=== PATIENT | female | born 2000 | race Caucasian/White ===

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

== ENCOUNTER → 2019-03-04 | Outpatient (CLI) | payer OTHER ==
[~2019-03-04] MED LIST changes: +MACR100C43 PO; +NAPR-837 PO; +REGL10TA6 PO
[2019-03-04 19:04] LABS: MONO SCRN NEGATIVE (NEGATIVE)
== END ==
LOC: M LAB 17:43
PROVIDERS: ATTEND Physician Assistant Medical
DX: R53.83 Other fatigue (principal)

== ENCOUNTER 2019-04-18 13:30 | Emergency (ER) | payer OTHER ==
[~2019-04-18] VITALS: Ht 154.9 cm; Wt 72.7 kg
[2019-04-18] MEDS ORDERED: MIRE1IUD IU (13:35)
[2019-04-18 14:38] LABS: BASO # 0.1 10^3/uL (0.0-0.2); BASO % 0.6 % (0.0-1.0); EOS # 0.1 10^3/uL (0.0-0.50); EOS % 1.3 % (0.0-3.0); HEMATOCRIT 44.2 % (36.0-47.0); HEMOGLOBIN 15.4 g/dl (12.0-15.5); LYMPH # 2.7 10^3/uL (1.5-6.5); LYMPH % 30.5 % (24.0-44.0); MEAN CORPUSCULAR HEMOGLOBIN 30.9 pg (27.0-33.0); MEAN CORPUSCULAR HGB CONC 34.8 g/dl (32.0-36.5); MEAN CORPUSCULAR VOLUME 88.6 fl (80.0-96.0); MONO # 0.9 10^3/uL (0.0-0.8); MONO % 9.9 % (0.0-5.0); NEUTROPHILS % 57.4 % (36.0-66.0); PLATELET COUNT, AUTOMATED 309 10^3/uL (150-450); RED BLOOD COUNT 4.99 10^6/uL (4.00-5.40); WHITE BLOOD COUNT 8.7 10^3/uL (4.0-10.0)
[2019-04-18 15:07] LABS: ALT/SGPT 22 U/L (12-78); BILIRUBIN,DIRECT 0.1 MG/DL (0.0-0.2); BILIRUBIN,TOTAL 0.6 MG/DL (0.2-1.0); BLOOD UREA NITROGEN 10 MG/DL (7-18); CALCIUM LEVEL 9.3 MG/DL (8.5-10.1); CARBON DIOXIDE LEVEL 29 MEQ/L (21-32); CHLORIDE LEVEL 107 MEQ/L (98-107); CREATININE FOR GFR 0.78 MG/DL (0.55-1.30); GLUCOSE, FASTING 84 MG/DL (70-100); LIPASE 111 U/L (73-393); SODIUM LEVEL 141 MEQ/L (136-145); TOTAL PROTEIN 7.4 GM/DL (6.4-8.2)
[2019-04-18] MEDS ORDERED: KEFL500C17 PO (16:41)
[2019-04-18 16:48] VITALS: BP 131/83
== END 2019-04-18 16:51 | disposition home or self-care (01) ==
LOC: M ED 13:30
DX: N39.0 Urinary tract infection, site not specified (principal); Z97.5 Presence of (intrauterine) contraceptive device

== ENCOUNTER 2019-05-25 22:52 | Emergency (ER) | payer OTHER ==
[~2019-05-25] VITALS: Ht 154.9 cm; Wt 70.9 kg
[~2019-05-25 22:52] MED LIST changes: +KEFL500C17 PO; +MIRE1IUD IU
[2019-05-25 22:53] VITALS: BP 127/71
[2019-05-25] MEDS ORDERED: AMOX500C PO (23:01)
[2019-05-25] MEDS ORDERED: CETI10CH PO (23:01)
[2019-05-25] MEDS ORDERED: BENZ200C70 PO (23:01)
[2019-05-26] MEDS ORDERED: ALBUTEROL SULFATE 2.5 MG/0.5 ML INH NEB SOLN NEB ONE (00:45)
[2019-05-26] MEDS ORDERED: predniSONE 20 MG TAB PO ONE (00:45)
[2019-05-26] MEDS ORDERED: VENTAER INH (01:42)
[2019-05-26] MEDS ORDERED: PRED20TA PO (01:42)
[2019-05-26] MEDS ORDERED: AUGM875T28 PO (01:42)
--- NOTE | 2019-05-26 10:51 | REP ---
PA and lateral chest: Comparison is 11/13/2016. The lung alexandra are clear. The cardiac size is normal. The malick, mediastinum, and skeletal structures are unremarkable. Impression: Negative PA and lateral chest. Electronically Signed by Drew Hassan MD 05/26/2019 08:02 A
== END 2019-05-26 01:48 | disposition home or self-care (01) ==
LOC: M ED 22:52
DX: J20.9 Acute bronchitis, unspecified (principal); H66.91 Otitis media, unspecified, right ear

== ENCOUNTER 2019-05-27 22:55 | Emergency (ER) | payer OTHER ==
[~2019-05-27] VITALS: Ht 157.5 cm; Wt 68.2 kg
[2019-05-27 22:55] VITALS: BP 132/82
[~2019-05-27 22:55] MED LIST changes: +AMOX500C PO; +BENZ200C70 PO; +CETI10CH PO; -MECL-68 PO; +MECL1TAB31 PO; +PRED20TA PO; +VENTAER INH
--- NOTE | 2019-05-28 01:26 | REP ---
Clinical: Trauma. Technique: AP, lateral, bilateral oblique views right second and third digits . Findings: The osseous structures and joint spaces are intact and normal. There is no evidence for acute fracture or dislocation. Surrounding soft tissues are unremarkable. No subcutaneous emphysema or radiodense foreign body. Impression: No acute fracture or dislocation. Electronically Signed by Jean Lackey MD 05/28/2019 01:17 A
== END 2019-05-28 02:16 | disposition home or self-care (01) ==
LOC: M ED 22:55
DX: S60.121A Contusion of right index finger with damage to nail, initial encounter (principal); S60.131A Contusion of right middle finger with damage to nail, initial encounter; W23.0XXA Caught, crushed, jammed, or pinched between moving objects, initial encounter; Y92.9 Unspecified place or not applicable; Y93.9 Activity, unspecified; Y99.9 Unspecified external cause status; Z79.899 Other long term (current) drug therapy

== ENCOUNTER 2019-08-16 23:58 | Emergency (ER) | payer OTHER ==
[~2019-08-16] VITALS: Ht 157.5 cm; Wt 77.3 kg
[~2019-08-16 23:58] MED LIST changes: +MECL-68 PO; -MECL1TAB31 PO
[2019-08-17] MEDS ORDERED: IBUP-1022 PO (01:43)
[2019-08-17 01:53] VITALS: BP 121/64
--- NOTE | 2019-08-17 02:01 | REPVR ---
PROCEDURE INFORMATION: Exam: US Pelvis Complete, Transabdominal and US Pelvis, Transvaginal Exam date and time: 08/17/2019 1:19 AM Clinical history: 19 years old, female; Pelvic pain; Additional info: Llq pain, HX ovarian cyst, feels similar TECHNIQUE: Imaging protocol: Real-time transabdominal and transvaginal pelvic ultrasound (complete) with image documentation. Transvaginal imaging was used for better evaluation of the endometrium and adnexa. COMPARISON: US PELVIC NON-OB COMPLETE 10/26/2018 8:11 PM FINDINGS: Uterus/cervix: The uterus measures 7.1 cm in its cephalocaudad dimension and 2.9 x 4.3 cm in its AP and lateral dimensions transabdominal. The uterus measures 7.7 cm in its cephalocaudad dimension and 2.9 x 4.5 cm in its AP and lateral dimensions transvaginal. The endometrium measures 3 mm transabdominal and 4 mm transvaginal. There is an IUD in the lower uterine segment and cervix. Right adnexa: The right ovary measures 2.4 x 3.1 x 2.4 cm and demonstrates blood flow. Left adnexa: The left ovary measures 4.8 x 4.6 x 3.6 cm with multiseptated left ovarian cystic mass measuring 3.9 x 3.4 x 4.7 cm. There is left ovarian blood flow. Free fluid: None. Bladder: Grossly within normal limits. IMPRESSION: 1. IUD in the lower uterine segment and cervix. 2. Complex multiseptated left ovarian cyst measuring 3.9 x 3.4 x 4.7 cm. 3. Otherwise negative pelvic sonogram. Electronically signed by: Manuel Simental On 08/17/2019 02:01:21 AM
== END 2019-08-17 01:54 | disposition home or self-care (01) ==
LOC: M ED 23:58
DX: N83.202 Unspecified ovarian cyst, left side (principal)

== ENCOUNTER 2020-04-15 19:32 | Emergency (ER) | payer OTHER ==
[~2020-04-15] VITALS: Ht 157.5 cm; Wt 88.8 kg
[2020-04-15 19:32] VITALS: BP 141/75
[~2020-04-15 19:32] MED LIST changes: -MECL-68 PO; +MECL1TAB31 PO
[2020-04-15] MEDS ORDERED: IBUP200C28 PO (19:37)
[2020-04-15] MEDS ORDERED: AUGM875T28 PO (19:51)
== END 2020-04-15 20:07 | disposition home or self-care (01) ==
LOC: M ED 19:32
DX: H60.91 Unspecified otitis externa, right ear (principal)

== ENCOUNTER → 2021-01-29 | Outpatient (REF) | payer OTHER ==
[~2021-01-29] MED LIST changes: +IBUP200C28 PO
[2021-01-29 17:14] LABS: BASO % 0.5 % (0.0-1.0); EOS % 0.5 % (0.0-3.0); HEMATOCRIT 43.8 % (36.0-47.0); HEMOGLOBIN 14.5 g/dl (12.0-15.5); LYMPH # 1.7 10^3/uL (1.5-5.0); MEAN CORPUSCULAR HEMOGLOBIN 29.4 pg (27.0-33.0); MEAN CORPUSCULAR HGB CONC 33.1 g/dl (32.0-36.5); MEAN CORPUSCULAR VOLUME 88.7 fl (80.0-96.0); MONO # 0.5 10^3/uL (0.0-0.8); MONO % 13.9 % (2.0-8.0); NEUTROPHILS # 1.4 10^3/uL (1.5-8.5); NEUTROPHILS % 39.1 % (36.0-66.0); PLATELET COUNT, AUTOMATED 265 10^3/uL (150-450); RED BLOOD COUNT 4.94 10^6/uL (4.00-5.40); WHITE BLOOD COUNT 3.7 10^3/uL (4.0-10.0)
[2021-01-29 17:30] LABS: HEMOGLOBIN A1c 4.8 %
[2021-01-29 17:47] LABS: ALBUMIN 4.3 GM/DL (3.2-5.2); ALT/SGPT 45 U/L (12-78); BILIRUBIN,TOTAL 0.5 MG/DL (0.2-1.0); BLOOD UREA NITROGEN 9 MG/DL (7-18); CARBON DIOXIDE LEVEL 28 MEQ/L (21-32); CHLORIDE LEVEL 108 MEQ/L (98-107); CHOLESTEROL LEVEL 140 MG/DL (<200); CHOLESTEROL RISK RATIO 3.414 (<5); CREATININE FOR GFR 0.69 MG/DL (0.55-1.30); GLOMERULAR FILTRATION RATE > 60.0 (>60); GLUCOSE, FASTING 89 MG/DL (70-100); HDL CHOLESTEROL 41 MG/DL (>40); LDL CHOLESTEROL 74 MG/DL (<100); NON-HDL-C 99 MG/DL; POTASSIUM SERUM 3.8 MEQ/L (3.5-5.1); SODIUM LEVEL 141 MEQ/L (136-145); TOTAL 25(OH) VITAMIN D 34.4 NG/ML (30.0-100.0); TOTAL PROTEIN 7.9 GM/DL (6.4-8.2); TRIGLYCERIDES LEVEL 127 MG/DL (<150)
== END ==
LOC: M LAB REF 16:32
PROVIDERS: ATTEND Pediatrics
DX: Z00.00 Encounter for general adult medical examination without abnormal findings (principal); E55.9 Vitamin D deficiency, unspecified; Z13.220 Encounter for screening for lipoid disorders; Z13.228 Encounter for screening for other metabolic disorders

== ENCOUNTER → 2023-01-11 | Outpatient (CLI) | payer OTHER | LOC: M RAD 16:55 | PROVIDERS: ATTEND Pediatrics | DX: M54.50 Low back pain, unspecified (principal) ==

== ENCOUNTER → 2023-02-28 | Outpatient (REF) | payer OTHER, MEDICAID ==
[2023-02-28 18:38] LABS: ALBUMIN 4.1 G/DL (3.2-5.2); ALKALINE PHOSPHATASE 141 U/L (46-116); ALT/SGPT 33 U/L (7.0-40); AST/SGOT 25 U/L (<34); BILIRUBIN,TOTAL 0.4 MG/DL (0.3-1.2); BLOOD UREA NITROGEN 16 MG/DL (9-23); CALCIUM LEVEL 9.3 MG/DL (8.5-10.1); CARBON DIOXIDE LEVEL 23 MMOL/L (20-31); CHLORIDE LEVEL 104 MMOL/L (98-107); CREATININE FOR GFR 0.73 MG/DL (0.55-1.30); GLOMERULAR FILTRATION RATE > 60.0 (>60); GLUCOSE, FASTING 76 MG/DL (60-100); POTASSIUM SERUM 4.2 MMOL/L (3.5-5.1); SODIUM LEVEL 139 MMOL/L (136-145); TOTAL PROTEIN 7.1 G/DL (5.7-8.2)
== END ==
LOC: M LAB REF 17:17
PROVIDERS: ATTEND Pediatrics
DX: E66.9 Obesity, unspecified (principal); Z68.38 Body mass index [BMI] 38.0-38.9, adult